=== PATIENT | male | born 1985 | race Caucasian/White ===

== ENCOUNTER 2022-04-08 10:06 | Emergency (ER) | payer OTHER ==
[~2022-04-08] VITALS: Wt 58.1 kg
[~2022-04-08 10:06] MED LIST: AUGMENTIN 875875 MG PO; BACTRIM DS 8001 TA1 PO; HYDROCODONE BIT1 T11 PO
[2022-04-08 10:20] VITALS: BP 100/70
[2022-04-08 11:27] LABS: BASO # 0.1 10*3/uL (0.0-0.1); EOS # 0.1 10*3/uL (0.0-0.4); HEMATOCRIT 45.1 % (42.0-52.0); LYMPH # 1.9 10*3/uL (1.3-4.4); LYMPH % 27.2 % (27.0-41.0); MEAN CELL VOLUME 87.9 fl (80.0-94.0); MEAN CORPUSCULAR HGB 30.8 pg (27.0-31.0); MEAN PLATELET VOLUME 8.9 fl (9.6-12.3); MONO # 0.4 10*3/uL (0.1-1.0); MONO % 6.1 % (3.0-9.0); NEUT # 4.5 10*3/uL (2.3-7.9); NEUT % 63.6 % (47.0-73.0); PLATELET COUNT AUTOMATED 298 10*3/uL (130-400); RED BLOOD COUNT 5.13 10*6/uL (4.50-5.90); RED CELL DISTRI WIDTH 11.8 % (0-14.5)
[2022-04-08 11:54] LABS: ALKALINE PHOSPHATASE 59 U/L (45-117); BUN 10 mg/dl (7-24); CHLORIDE 108 mmol/L (98-107); CREATININE 0.91 mg/dL (0.70-1.30); LIPASE 110 U/L (73-393); POTASSIUM 4.3 mmol/L (3.5-5.1); SGOT/AST 18 IU/L (3-35); SGPT/ALT 14 U/L (12-78); SODIUM 140 mmol/L (136-145); TOTAL PROTEIN 6.6 gm/dL (6.4-8.2)
[2022-04-08 11:54] LABS: BILIRUBIN Negative (Negative); BLOOD Negative (Negative); CLARITY Turbid (Clear); COLOR Yellow (Yellow); GLUCOSE Negative (Negative); KETONE Negative (Negative); LEUKO ESTERASE Negative (Negative); NITRITE Negative (Negative); SPECIFIC GRAVITY 1.015 (1.001-1.030); UROBILINOGEN 0.2 E.U./dl (0.0-1.0)
[2022-04-08 12:21] LABS: BACTERIA 1+
[2022-04-08] MEDS ORDERED: DICYCLOMINE HCL10 MG PO (12:39)
== END 2022-04-08 13:03 | disposition home or self-care (01) ==
LOC: ED 10:06
PROVIDERS: Physician Assistant
DX: R10.9 Unspecified abdominal pain (principal); K62.89 Other specified diseases of anus and rectum; Z88.1 Allergy status to other antibiotic agents